=== PATIENT | female | born 1990 | race Hispanic/Latino ===

== ENCOUNTER 2017-12-02 23:26 | Observation (INO) | payer OTHER ==
[~2017-12-02] VITALS: Ht 154.9 cm; Wt 89.0 kg
== END 2017-12-03 08:15 | disposition home or self-care (01) ==
LOC: FBCO 23:26 → FBC 12-03 01:38
PROVIDERS: ADMIT General Practice
DX: O47.1 False labor at or after 37 completed weeks of gestation (principal); Z3A.39 39 weeks gestation of pregnancy
CPT/HCPCS: 59025; 85027; 96361; 99213; G0378; J7120

== ENCOUNTER 2017-12-07 | Inpatient (IN) | payer OTHER ==
[~2017-12-07] VITALS: Ht 154.9 cm; Wt 88.0 kg
--- NOTE | 2017-12-09 07:43 | PR ---
[facility] [address] [place], [place] [address] Signed PP Progress Notes Datetime Report Generated by CPN: 12/09/2017 07:43 SUBJECTIVE: [id number] Pain: Within normal limits Nausea/Vomiting: Denies Flatus: Yes Bowel Movement: Yes Vital Signs: [id number] Vital Signs: Reviewed; Within Normal Limits EXAM: [id number] Cardiovascular: Normal Respiratory: Normal Abdomen/Uterus: Normal Lochia: Normal Vulva/Perineum: Normal Breasts: Normal CVA Tenderness: Normal Extremities: Normal Incision: Not Applicable Progress: Normal IMPRESSION/PLAN/PROCEDURES: [id number] Impression: Normal progression Plan: Discharge Procedures: None Progress Notes: patient doing well, wanting to go home today Signing Physician: Sandra Jeronimo MD Copies: ~ *Electronically Signed* 12/09/17 0743 SANDRA JERONIMO MD PATIENT NAME: MELY DOTSON PROGRESS NOTE DATE OF : 90 PHYSICIAN: SANDRA JERONIMO MD RPT #: [id number] REPORT IS CONFIDENTIAL AND NOT TO BE RELEASED WITHOUT AUTHORIZATION
== END 2017-12-09 10:05 | disposition home or self-care (01) | DRG 775 ==
LOC: FBC
PROVIDERS: ADMIT Obstetrics & Gynecology
PROC: 10907ZC Drainage of Amniotic Fluid, Therapeutic from Products of Conception, Via Natural or Artificial Opening (ICD-10-PCS; principal; 2017-12-08)
PROC: 10E0XZZ Delivery of Products of Conception, External Approach (ICD-10-PCS; principal; 2017-12-08)
PROC: 00HU33Z Insertion of Infusion Device into Spinal Canal, Percutaneous Approach (ICD-10-PCS; 2017-12-08)
PROC: 3E0R3BZ Introduction of Anesthetic Agent into Spinal Canal, Percutaneous Approach (ICD-10-PCS; 2017-12-08)
DX: O36.63X0 Maternal care for excessive fetal growth, third trimester, not applicable or unspecified (principal); Z3A.40 40 weeks gestation of pregnancy; Z37.0 Single live birth; O32.2XX0 Maternal care for transverse and oblique lie, not applicable or unspecified; O77.0 Labor and delivery complicated by meconium in amniotic fluid; O24.420 Gestational diabetes mellitus in childbirth, diet controlled
CPT/HCPCS: 36415; 85027; J2590; J3010; J7120

== ENCOUNTER 2022-10-03 16:49 | Emergency (ER) | payer OTHER ==
[~2022-10-03] VITALS: Ht 154.9 cm; Wt 72.6 kg
[2022-10-03] MEDS ORDERED: METRONIDAZOLE500 MG PO (19:22)
[2022-10-03] MEDS ORDERED: DOXYCYCLINE HY100 MG PO (19:22)
== END 2022-10-03 19:33 | disposition home or self-care (01) ==
LOC: ED 16:49
DX: N73.9 Female pelvic inflammatory disease, unspecified (principal)
CPT/HCPCS: 36415; 80053; 81001; 83690; 83735; 84703; 85025; 99284